=== PATIENT | female | born 1985 | race Two or more races ===

== ENCOUNTER 2021-10-19 10:59 | Outpatient (CLI) | payer OTHER | END 2021-10-19 11:00 | disposition home or self-care (01) | LOC: SONOGRAMA 10:59 | PROVIDERS: ATTEND Pathology Anatomic Pathology & Clinical Pathology | DX: E04.2 Nontoxic multinodular goiter (principal) ==

== ENCOUNTER 2021-12-19 09:15 | Inpatient (IN) | payer OTHER ==
[~2021-12-19] VITALS: Ht 160 cm; Wt 59.0 kg
[2021-12-19] MEDS ORDERED: LOSARTAN POTASS50 MG PO (10:33)
[2021-12-19] MEDS ORDERED: TOPROL XL25 M1 PO (10:33)
[2021-12-19] MEDS ORDERED: SYNTHROID150 MCG PO (10:33)
[2021-12-19] MEDS ORDERED: SIMVASTATIN10 MG PO (10:34)
[2021-12-19] MEDS ORDERED: CELEXA20 MG PO (10:34)
== END 2021-12-23 10:30 | disposition home or self-care (01) | DRG 743 ==
LOC: O/R 12-21 07:55 → OB/GYN 12-21 07:55 → SURH 12-21 09:15 → OB/GYN 12-21 14:36
PROVIDERS: ADMIT Obstetrics & Gynecology Gynecologic Oncology; ATTEND Obstetrics & Gynecology Gynecologic Oncology
PROC: 0UT50ZZ Resection of Right Fallopian Tube, Open Approach (ICD-10-PCS; 2021-12-21)
PROC: 0UB90ZZ Excision of Uterus, Open Approach (ICD-10-PCS; principal; 2021-12-21 10:00)
DX: D25.2 Subserosal leiomyoma of uterus (principal); Z20.822 Contact with and (suspected) exposure to COVID-19